=== PATIENT | male | born 1995 | race African-American/Black ===

== ENCOUNTER → 2020-08-16 12:43 | Outpatient (CLI) | payer OTHER, SELFPAY ==
--- NOTE | 2020-08-16 | DI.MRI.S_ITS ---
PROCEDURE: MR HAND LT WO CON INDICATIONS: Pain in unspecified finger(s) TECHNIQUE: Noncontrast coronal T1 spin echo and T2 fast spin echo with fat saturation, axial proton density fast spin echo and T2 fast spin echo with fat saturation, sagittal T1 spin echo and STIR through the hand and fingers. COMPARISON: None. FINDINGS: Image quality: Excellent. Bones: The bones are normally aligned, without marrow contusions or fractures. No intra-osseous lesions. Interphalangeal joint(s): The accessory and proper collateral ligaments appear intact. The volar plate demonstrates normal morphology. The extensor central slips appear intact on sagittal images. Metacarpophalangeal joint(s): The accessory and proper collateral ligaments appear intact, as well as the volar plate and adjacent deep transverse metacarpal ligaments. The sagittal bands of the extensor walter appear normal. Extensor apparatus: The central slips insert normally on the middle phalangeal base. The conjoint and terminal tendons insert normally on the distal phalangeal bases. More proximal portions of the extensor tendons also appear normal. Flexor apparatus: The flexor digitorum superficialis and profundus tendons both appear intact. All annular and cruciform pulleys appear intact, without adjacent soft tissue edema. Soft tissues: Visualized muscles demonstrate normal bulk and internal signal. No intramuscular masses identified. No ganglion cysts. IMPRESSION: Overall, unremarkable examination as above. Dictated by: Andrea Ponce M.D. on 08/16/2020 at 14:54 Approved by: Andrea Ponce M.D. on 08/16/2020 at 15:05
--- NOTE | 2020-08-16 | DI.MRI.S_ITS ---
PROCEDURE: MR HAND RT WO CON INDICATIONS: Pain in unspecified finger(s) TECHNIQUE: Noncontrast coronal T1 spin echo and T2 fast spin echo with fat saturation, axial proton density fast spin echo and T2 fast spin echo with fat saturation, sagittal T1 spin echo and STIR through the hand and fingers. COMPARISON: None. FINDINGS: Image quality: Excellent. Bones: The bones are normally aligned, without marrow contusions or fractures. No intra-osseous lesions. Scattered degenerative subchondral sclerosis and spurring. Mild diffuse marrow edema within the carpus is probably reactive/degenerative. Interphalangeal joint(s): The accessory and proper collateral ligaments appear intact. The volar plate demonstrates normal morphology. The extensor central slips appear intact on sagittal images. Metacarpophalangeal joint(s): The accessory and proper collateral ligaments appear intact, as well as the volar plate and adjacent deep transverse metacarpal ligaments. The sagittal bands of the extensor walter appear normal. Extensor apparatus: The central slips insert normally on the middle phalangeal base. The conjoint and terminal tendons insert normally on the distal phalangeal bases. More proximal portions of the extensor tendons also appear normal. Flexor apparatus: The flexor digitorum superficialis and profundus tendons both appear intact. All annular and cruciform pulleys appear intact, without adjacent soft tissue edema. Soft tissues: Visualized muscles demonstrate normal bulk and internal signal. No intramuscular masses identified. No ganglion cysts. IMPRESSION: Mild degenerative changes, otherwise, unremarkable examination. No tenosynovitis. Dictated by: Andrea Ponce M.D. on 08/16/2020 at 14:42 Approved by: Andrea Ponce M.D. on 08/16/2020 at 14:53
== END ==
PROVIDERS: PCP Student in an Organized Health Care Education/Training Program; Referring Provider Student in an Organized Health Care Education/Training Program; Visit Provider Student in an Organized Health Care Education/Training Program
DX: S69.91XA Unspecified injury of right wrist, hand and finger(s), initial encounter (principal); S69.92XA Unspecified injury of left wrist, hand and finger(s), initial encounter; M79.645 Pain in left finger(s); M79.644 Pain in right finger(s); X50.0XXA Overexertion from strenuous movement or load, initial encounter
CPT/HCPCS: 73218